=== PATIENT | male | born 1965 | race African-American/Black ===

== ENCOUNTER 2017-04-20 15:21 | Inpatient (IN) | payer OTHER, MEDICAID, MEDICARE ==
[2017-04-20] MEDS: ASPIRIN 325 MG TAB PO (19:24)
[2017-04-20] MEDS: SOD CHLORIDE 0.9% 500 ML IV (19:25)
[2017-04-20 19:45] LABS: ADD MAN DIFF? NO
[2017-04-20 19:50] LABS: WHITE BLOOD COUNT 8.7 10^3/ul (4.8-10.8)
[2017-04-20 19:50] LABS: BASOPHIL # 0.1 10^3/ul (0.0-0.1); BASOPHILS % 0.7 % (0.0-2.0); EOSINOPHILS # 0.3 10^3/ul (0.0-0.5); EOSINOPHILS % 3.3 % (0.0-7.0); LYMPHOCYTES # 4.5 10^3/ul (0.8-2.9); LYMPHOCYTES % 50.9 % (15.0-51.0); MEAN CORPUSCULAR HEMOGLOBIN 26.7 pg (29.0-33.0); MEAN CORPUSCULAR HGB CONC 32.6 g/dl (32.0-37.0); MEAN PLATELET VOLUME 11.2 fl (7.4-10.4); MONOCYTE # 0.7 10^3/ul (0.3-0.9); MONOCYTES % 7.6 % (0.0-11.0); NEUTROPHIL # 3.3 10^3/ul (1.6-7.5); NEUTROPHILS % 37.2 % (39.0-77.0); PLATELET COUNT 269 10^3/UL (140-415); RED BLOOD COUNT 5.61 10^6/ul (4.70-6.10); RED CELL DISTRIBUTION WIDTH 15.5 % (11.5-14.5)
[2017-04-20 20:08] LABS: INR 0.92; PROTIME 12.4 Sec (11.9-14.9)
[2017-04-20 20:09] LABS: BLOOD UREA NITROGEN 8 mg/dl (7-20); CALCIUM 9.3 mg/dl (8.4-10.2); CARBON DIOXIDE 27 mmol/L (21-31); CHLORIDE 107 mmol/L (97-110); CREATININE 0.93 mg/dl (0.61-1.24); GLUCOSE 77 mg/dl (70-220); PARTIAL THROMBOPLASTIN TIME 29.2 Sec (25.0-35.0); SODIUM 146 mmol/L (135-144)
[2017-04-20 20:12] LABS: ANION GAP 16 (8-16); POTASSIUM 4.2 mmol/L (3.5-5.1)
[2017-04-20 20:20] LABS: TROPONIN-I 0.034 ng/ml (0.00-0.12)
[2017-04-20] MEDS: LEVETIRACETAM 250 MG TAB PO (20:25)
[2017-04-20] MEDS: ACETAMINOPHEN 500 MG TAB PO (20:27)
[2017-04-20] MEDS ORDERED: ONDANSETRON 4 MG INJ IV (23:00)
[2017-04-20] MEDS ORDERED: ACETAMINOPHEN 325 MG TAB PO (23:00)
[2017-04-20 23:53] LABS: BARBITURATES Negative (NEGATIVE); BENZODIAZEPINES Negative (NEGATIVE); CANNABINOIDS Negative (NEGATIVE); COCAINE Negative (NEGATIVE); OPIATES Negative (NEGATIVE)
[2017-04-21 00:04] LABS: AMPHETAMINE/METHAMPHETAMINE POSITIVE (NEGATIVE)
[2017-04-21] MEDS: ASPIRIN 81 MG TAB PO (00:26)
[2017-04-21] MEDS ORDERED: NACL 0.9% 3 ML SYG IV (03:00)
[2017-04-21] MEDS ORDERED: ALBUTEROL/IPRATROPIUM (NEB) 3 ML AMP HHN (03:00)
[2017-04-21] MEDS: LEVETIRACETAM 500 MG TAB PO ×3 (09:08→21:05)
[2017-04-21] MEDS: HEPARIN 5,000 UNIT/0.5 ML VIAL SC ×2 (09:09→17:18)
[2017-04-21] MEDS: ASPIRIN (EC) 81 MG TAB PO (09:09)
[2017-04-21] MEDS: BENAZEPRIL 10 MG TAB PO (09:09)
[2017-04-21 09:51] LABS: ADD MAN DIFF? NO
[2017-04-21 09:57] LABS: BASOPHIL # 0.1 10^3/ul (0.0-0.1); BASOPHILS % 0.8 % (0.0-2.0); EOSINOPHILS # 0.2 10^3/ul (0.0-0.5); EOSINOPHILS % 3.7 % (0.0-7.0); HEMATOCRIT 41.7 % (42.0-52.0); HEMOGLOBIN 13.5 g/dl (14.0-18.0); LYMPHOCYTES # 2.9 10^3/ul (0.8-2.9); LYMPHOCYTES % 48.4 % (15.0-51.0); MEAN CORPUSCULAR HEMOGLOBIN 26.5 pg (29.0-33.0); MEAN CORPUSCULAR HGB CONC 32.4 g/dl (32.0-37.0); MEAN CORPUSCULAR VOLUME 81.9 fl (82.0-101.0); MEAN PLATELET VOLUME 11.6 fl (7.4-10.4); MONOCYTE # 0.5 10^3/ul (0.3-0.9); MONOCYTES % 7.8 % (0.0-11.0); NEUTROPHIL # 2.3 10^3/ul (1.6-7.5); NEUTROPHILS % 39.1 % (39.0-77.0); PLATELET COUNT 243 10^3/UL (140-415); RED BLOOD COUNT 5.09 10^6/ul (4.70-6.10); RED CELL DISTRIBUTION WIDTH 15.5 % (11.5-14.5)
[2017-04-21 10:11] LABS: HEMOGLOBIN A1C 5.4 % (0-5.9)
[2017-04-21 10:25] LABS: ALANINE AMINOTRANSFERASE 24 IU/L (13-69); ALBUMIN 3.7 g/dl (3.3-4.9); ALBUMIN/GLOBULIN RATIO 1.32; ALKALINE PHOSPHATASE 74 IU/L (42-121); ANION GAP 16 (8-16); ASPARTATE AMINO TRANSFERASE 21 IU/L (15-46); BILIRUBIN,INDIRECT 0.1 mg/dl (0-1.1); BILIRUBIN,TOTAL 0.1 mg/dl (0.2-1.3); BLOOD UREA NITROGEN 11 mg/dl (7-20); CARBON DIOXIDE 24 mmol/L (21-31); CHLORIDE 109 mmol/L (97-110); CHOL/HDL RATIO 2.6 RATIO; CHOLESTEROL 142 mg/dl (100-200); CREATININE 0.89 mg/dl (0.61-1.24); GLUCOSE 88 mg/dl (70-220); HDL CHOLESTEROL 53 mg/dl (28-71); LDL CHOLESTEROL,CALCULATED 69 mg/dl; POTASSIUM 4.7 mmol/L (3.5-5.1); SODIUM 144 mmol/L (135-144); TOTAL PROTEIN 6.5 g/dl (6.1-8.1); TRIGLYCERIDES 100 mg/dl (0-149)
[2017-04-21 10:27] LABS: CALCIUM 9.2 mg/dl (8.4-10.2)
[2017-04-21] MEDS: BENAZEPRIL 20 MG TAB PO (12:37)
[2017-04-21] MEDS: ACETAMINOPHEN 325 MG TAB PO (19:53)
[2017-04-22] MEDS: HEPARIN 5,000 UNIT/0.5 ML VIAL SC ×2 (01:12→09:19)
[2017-04-22] MEDS: morphine 2 MG INJ IV (08:32)
[2017-04-22] MEDS: ONDANSETRON 4 MG INJ IV (08:32)
[2017-04-22 08:45] LABS: ADD MAN DIFF? NO
[2017-04-22 08:49] LABS: WHITE BLOOD COUNT 6.3 10^3/ul (4.8-10.8)
[2017-04-22 08:49] LABS: BASOPHIL # 0.1 10^3/ul (0.0-0.1); BASOPHILS % 0.8 % (0.0-2.0); EOSINOPHILS # 0.2 10^3/ul (0.0-0.5); EOSINOPHILS % 2.8 % (0.0-7.0); HEMATOCRIT 41.4 % (42.0-52.0); HEMOGLOBIN 13.6 g/dl (14.0-18.0); LYMPHOCYTES # 3.2 10^3/ul (0.8-2.9); LYMPHOCYTES % 49.8 % (15.0-51.0); MEAN CORPUSCULAR HEMOGLOBIN 26.5 pg (29.0-33.0); MEAN CORPUSCULAR HGB CONC 32.9 g/dl (32.0-37.0); MEAN CORPUSCULAR VOLUME 80.7 fl (82.0-101.0); MONOCYTE # 0.5 10^3/ul (0.3-0.9); MONOCYTES % 7.1 % (0.0-11.0); NEUTROPHIL # 2.5 10^3/ul (1.6-7.5); NEUTROPHILS % 39.2 % (39.0-77.0); PLATELET COUNT 256 10^3/UL (140-415); RED BLOOD COUNT 5.13 10^6/ul (4.70-6.10)
[2017-04-22 09:17] LABS: ANION GAP 15 (8-16); BLOOD UREA NITROGEN 10 mg/dl (7-20); CALCIUM 8.9 mg/dl (8.4-10.2); CARBON DIOXIDE 25 mmol/L (21-31); CHLORIDE 106 mmol/L (97-110); CREATININE 0.85 mg/dl (0.61-1.24); GLUCOSE 109 mg/dl (70-220); MAGNESIUM 1.8 mg/dl (1.7-2.5); PHOSPHORUS 3.3 mg/dl (2.5-4.9); SODIUM 142 mmol/L (135-144)
[2017-04-22] MEDS: BENAZEPRIL 40 MG TAB PO (09:18)
[2017-04-22] MEDS: ASPIRIN (EC) 81 MG TAB PO (09:18)
[2017-04-22] MEDS: LEVETIRACETAM 500 MG TAB PO (09:18)
[2017-04-22] MEDS ORDERED: CALCIUM CARBONATE 500 MG CHEW TAB PO (11:30)
[2017-04-22] MEDS: FAMOTIDINE 20 MG INJ IV (11:43)
[2017-04-22] MEDS ORDERED: FAMOTIDINE 20 MG TAB PO (21:00)
== END 2017-04-22 12:35 | disposition left against medical advice (07) | DRG 65 ==
LOC: MS4 22:55 → E/R 15:21
DX: I63.9 Cerebral infarction, unspecified (principal); E87.0 Hyperosmolality and hypernatremia; I10 Essential (primary) hypertension; G40.909 Epilepsy, unspecified, not intractable, without status epilepticus; R20.0 Anesthesia of skin; I25.2 Old myocardial infarction; Z86.73 Personal history of transient ischemic attack (TIA), and cerebral infarction without residual deficits; Z79.82 Long term (current) use of aspirin
CPT/HCPCS: 36415; 70450; 71045; 80048; 80053; 80061; 80307; 83036; 83735; 84100; 84484; 85025; 85610; 85730; 92610; 93005; 93306; 93880; 97161; 99285-25